=== PATIENT | female | born 1980 | race Caucasian/White ===

== ENCOUNTER 2018-01-26 14:30 | Emergency (ER) | payer OTHER ==
[~2018-01-26] VITALS: Ht 162.6 cm; Wt 70.9 kg
[2018-01-26 15:23] LABS: HEMATOCRIT 35.4 % (36.0-46.0); HEMOGLOBIN 12.4 G/DL (11.9-15.5); MCH 31.3 PG (29.0-34.0); MCV 89.4 FL (83-99); PLATELET COUNT 184 K/uL (156-360); RBC DIS.WIDTH-CV 12.2 % (11.8-14.6); RBC DIS.WIDTH-SD 40.7 % (39-53); RED BLOOD COUNT 3.96 M/uL (3.80-5.20); WHITE BLOOD COUNT 8.2 K/uL (4.1-10.2)
[2018-01-26 15:33] LABS: CHLORIDE 102 mEq/L (99-109); POTASSIUM 3.7 mEq/L (3.7-5.4); SODIUM 133 mEq/L (136-147)
[2018-01-26 15:34] LABS: GLUCOSE 108 mg/dL (70-99)
[2018-01-26 15:38] LABS: CREATININE 0.8 mg/dL (0.6-1.3); GFR ESTIMATE (CALCULATED) > 59 mL/min/
[2018-01-26 15:39] LABS: UREA NITROGEN (BUN) 7 mg/dL (9-23)
[2018-01-26 15:44] LABS: TROP-I INTERPRETATION NEGATIVE; TROPONIN-I < 0.01 ng/mL (0.0-0.30)
[2018-01-26 15:46] LABS: QUANTITATIVE HCG < 4.0 MIU/ML
[2018-01-26 16:27] VITALS: BP 123/88
== END 2018-01-26 16:30 | disposition home or self-care (01) ==
LOC: EME 14:30
PROVIDERS: Emergency Medicine
DX: R55 Syncope and collapse (principal); R42 Dizziness and giddiness; R11.0 Nausea; R20.0 Anesthesia of skin
CPT/HCPCS: 80048; 84484; 84702; 85027; 93005; J7030